=== PATIENT | male | born 1990 | race Two or more races ===

== ENCOUNTER 2025-01-29 17:26 | Emergency (ER) | payer OTHER ==
[~2025-01-29] VITALS: Ht 160 cm; Wt 68.0 kg
[2025-01-29 18:06] VITALS: BP 106/58; TEMP 98; O2SAT 100
[2025-01-29] MEDS ORDERED: AMOX-430 PO (18:16)
[2025-01-29] MEDS ORDERED: TDAP [DIPH/PERTUSSIS/TET] 0.5 ML VIAL IM ONE ×2 (18:30→18:51)
== END 2025-01-29 19:02 | disposition home or self-care (01) ==
LOC: ER 17:39
DX: S61.452A Open bite of left hand, initial encounter (principal); J45.909 Unspecified asthma, uncomplicated; W54.0XXA Bitten by dog, initial encounter; Y93.89 Activity, other specified; Y92.89 Other specified places as the place of occurrence of the external cause; Y99.8 Other external cause status
CPT/HCPCS: 90715